=== PATIENT | female | born 1965 | race Caucasian/White ===

== ENCOUNTER 2023-08-06 13:31 | Observation (INO) ==
[2023-08-06] MEDS ORDERED: 0.9 % SODIUM CHLORIDE 1,000 ML IV ONE (13:48)
[2023-08-06] MEDS ORDERED: KETOROLAC 15 MG/ML VIAL IV ONE (13:48)
[2023-08-06] MEDS ORDERED: HYDROmorphone 1 MG/ML SYRINGE IV ONE (13:51)
[2023-08-06] MEDS ORDERED: ONDANSETRON 4 MG/2 ML VIAL IV ONE (13:51)
[2023-08-06 14:10] LABS: Basophils # (Auto) 0.08 K/mcL (0.00-0.30); Basophils % (Auto) 0.7 % (0.0-2.0); Eosinophils % (Auto) 1.7 % (0.0-7.0); Hematocrit 34.8 % (34.1-44.9); Hemoglobin 10.9 g/dL (11.2-15.7); Lymphocytes # (Auto) 1.37 K/mcL (1.50-4.80); Lymphocytes % (Auto) 11.4 % (15.5-49.0); Mean Cell Volume 98.6 fL (80.0-100.0); Mean Corpuscular HGB Conc 31.3 g/dL (31.0-36.0); Mean Platelet Volume 9.1 fL (8.8-12.5); Monocytes # (Auto) 0.79 K/mcL (0.10-0.90); Monocytes % (Auto) 6.6 % (1.0-12.0); Neutrophils % (Auto) 79.3 % (38.0-78.0); Platelet Count 510 K/mcL (140-440); RBC 3.53 M/mcL (3.59-5.38)
[2023-08-06 14:36] LABS: ALT/SGPT < 5 U/L (<40); AST/SGOT 18 U/L (<32); Albumin 3.6 gm/dL (3.2-5.2); Albumin/Globulin Ratio 1.2 (1.0-2.3); Alkaline Phosphatase 151 U/L (39-117); Bilirubin,Total < 0.2 mg/dL (0.1-1.0); Blood Urea Nitrogen 38 mg/dL (6-20); Carbon Dioxide 17 mmol/L (22-30); Chloride 111 mmol/L (96-108); Globulin 3.1 gm/dL (2.2-3.7); Glomerular Filtration Rate 50; Glucose 87 mg/dL (70-105)
[2023-08-06] MEDS ORDERED: HYDROmorphone 0.5 MG/0.5 ML SYRINGE IV PRN (15:48)
[2023-08-06 16:13] LABS: Appearance,Urine Cloudy (Clear); Bacteria,Urine Few /hpf (0); Bilirubin,Urine Small mg/dL (Negative); Color,Urine Yellow; Culture Indicated,Urine Yes; Glucose,Urine (UA) Negative (Negative); Ketones,Urine Negative (Negative); Leukocyte Esterase,Urine Small /uL (Negative); Nitrate,Urine Negative (Negative); Protein,Urine >=300 mg/dL (Negative); Specific Gravity,Urine 1.025 (1.000-1.035); Urine Blood Large ery/mcL (Negative); Urine Squamous Epithelial Cell 2 /hpf (0-4); Urobilinogen,Urine Normal
[2023-08-06 16:27] LABS: Urine RBC > 182 /hpf (0-1); Urine WBC > 182 /hpf (0-4)
[2023-08-06] MEDS ORDERED: cefTRIAXone 1 GM VIAL IV ONE (17:03)
[2023-08-06] MEDS ORDERED: ONDANSETRON 4 MG/2 ML VIAL IV PRN (17:22)
[2023-08-06] MEDS ORDERED: oxyCODONE/APAP 5/325MG TABLET PO PRN (17:22)
[2023-08-06] MEDS ORDERED: MAGNESIUM HYDROXIDE 30 ML ORAL.SUSP PO PRN (17:22)
[2023-08-06] MEDS: morphine 4 MG/ML VIAL IV PRN ×2 (19:45→23:07)
[2023-08-06] MEDS: DEXTROSE 5%-1/2NS W/20MEQ KCL 1,000 ML IV SCH (19:46)
[2023-08-06] MEDS ORDERED: GENTAMICIN SULFATE 180 MG in 0.9 % SODIUM CHLORIDE 250 ML IV ONE (20:00)
[2023-08-06] MEDS: ceFAZolin 1 GM VIAL IV SCH (20:59)
[2023-08-06] MEDS: 0.9 % SODIUM CHLORIDE 10 ML SYRINGE IV SCH (21:00)
[2023-08-07] MEDS: morphine 4 MG/ML VIAL IV PRN ×4 (05:04→13:04)
[2023-08-07] MEDS: ceFAZolin 1 GM VIAL IV SCH ×2 (05:04→14:06)
[2023-08-07] MEDS: 0.9 % SODIUM CHLORIDE 10 ML SYRINGE IV SCH (05:18)
[2023-08-07] MEDS ORDERED: IOVERSOL 20 ML VIAL IJ ONE (06:48)
[2023-08-07] MEDS ORDERED: LIDOCAINE 2% URO-JET 10 ML JEL.PF.APP UR ONE (06:48)
[2023-08-07] MEDS ORDERED: ceFAZolin 2 GM in DEXTROSE 5% IN WATER 50 ML IV SCH (07:30)
[2023-08-07] MEDS ORDERED: KETAMINE 50 MG/ML Syringe IV ONE (09:10)
[2023-08-07] MEDS ORDERED: fentaNYL 100 MCG/2 ML VIAL ONE (09:10)
[2023-08-07] MEDS ORDERED: ONDANSETRON 4 MG/2 ML VIAL ONE (09:11)
[2023-08-07] MEDS ORDERED: DEXAMETHASONE 10 MG/ML VIAL ONE (09:11)
[2023-08-07] MEDS ORDERED: ROCURONIUM 10 MG/ML ML IV ONE (09:11)
[2023-08-07] MEDS ORDERED: SUGAMMADEX SODIUM 200 MG/2 ML VIAL IV ONE (09:11)
[2023-08-07] MEDS ORDERED: LIDOCAINE 2% PF 5 ML VIAL ONE (09:11)
[2023-08-07] MEDS ORDERED: SCOPOLAMINE 1 PATCH PATCH TOPICAL PRN (10:00)
[2023-08-07] MEDS ORDERED: IPRATROPIUM/ALBUTEROL 3 ML AMPUL.NEB NEB PRN ×2 (10:00→10:20)
[2023-08-07] MEDS ORDERED: PHENYLephrine 1 MG/10 ML SYRINGE (ANEST) ONE (10:03)
[2023-08-07] MEDS ORDERED: diphenhydrAMINE 50 MG/ML VIAL IV PRN (10:20)
[2023-08-07] MEDS ORDERED: fentaNYL 100 MCG/2 ML VIAL IV PRN (10:20)
[2023-08-07] MEDS ORDERED: LACTATED RINGERS 250 ML IV PRN (10:20)
[2023-08-07] MEDS ORDERED: MEPERIDINE 25 MG/ML VIAL IV PRN (10:20)
[2023-08-07] MEDS ORDERED: NALOXONE HCL 0.4 MG/ML VIAL IV PRN (10:20)
[2023-08-07] MEDS ORDERED: ONDANSETRON 4 MG/2 ML VIAL IV PRN (10:20)
[2023-08-07] MEDS ORDERED: PROMETHAZINE 25 MG/ML VIAL IV PRN (10:20)
[2023-08-07] MEDS ORDERED: LACTATED RINGERS 1,000 ML IV SCH (10:30)
[2023-08-07] MEDS ORDERED: HYDROcodone/APAP 5/325MG TABLET PO PRN (10:47)
[2023-08-07] MEDS: DEXTROSE 5%-1/2NS W/20MEQ KCL 1,000 ML IV SCH (13:45)
[2023-08-07] MEDS ORDERED: 0.9 % SODIUM CHLORIDE 10 ML SYRINGE IV SCH (14:00)
== END 2023-08-07 15:51 | disposition home or self-care (01) ==
LOC: ED 13:31 → MEDSUR 13:31
PROVIDERS: ADMIT Urology; ATTEND Urology